=== PATIENT | female | born 1980 | race Caucasian/White ===

== ENCOUNTER 2018-01-27 19:43 | Emergency (ER) | payer SELFPAY | END 2018-01-27 20:40 | disposition left against medical advice (07) | LOC: E/R 19:43 | DX: Z53.21 Procedure and treatment not carried out due to patient leaving prior to being seen by health care provider (principal) ==

== ENCOUNTER 2018-04-08 00:52 | Emergency (ER) | payer SELFPAY | END 2018-04-08 01:25 | disposition left against medical advice (07) | LOC: E/R 01:25 | DX: Z53.21 Procedure and treatment not carried out due to patient leaving prior to being seen by health care provider (principal) ==